=== PATIENT | male | born 2000 | race Two or more races ===

== ENCOUNTER 2020-07-14 22:48 | Emergency (ER) | payer OTHER ==
[~2020-07-14] VITALS: Ht 188 cm; Wt 113.6 kg
[2020-07-15 00:18] LABS: GLUCOSE,POINT OF CARE 109 MG/DL (70-110)
[2020-07-15 01:31] VITALS: BP 133/67
== END 2020-07-15 02:00 | disposition home or self-care (01) ==
LOC: EMS 22:53 → EDBD 22:53 → EMS 07-15 02:00
DX: Z04.3 Encounter for examination and observation following other accident (principal); F17.210 Nicotine dependence, cigarettes, uncomplicated; Z88.0 Allergy status to penicillin; V49.9XXA Car occupant (driver) (passenger) injured in unspecified traffic accident, initial encounter; Y93.89 Activity, other specified; Y92.89 Other specified places as the place of occurrence of the external cause; Y99.8 Other external cause status

== ENCOUNTER 2021-08-26 23:44 | Emergency (ER) | payer OTHER ==
[~2021-08-26] VITALS: Ht 185.4 cm; Wt 90.9 kg
[2021-08-27] MEDS ORDERED: BACITRACIN 0.9 GM PACKET OINTMENT TP ONE (01:00)
[2021-08-27 01:11] VITALS: BP 129/83
== END 2021-08-27 01:28 | disposition home or self-care (01) ==
LOC: EMS 08-27 00:04
DX: S80.212A Abrasion, left knee, initial encounter (principal); S80.211A Abrasion, right knee, initial encounter; S50.311A Abrasion of right elbow, initial encounter; F10.129 Alcohol abuse with intoxication, unspecified; F17.210 Nicotine dependence, cigarettes, uncomplicated; Z88.1 Allergy status to other antibiotic agents; W19.XXXA Unspecified fall, initial encounter; Y93.39 Activity, other involving climbing, rappelling and jumping off; Y92.89 Other specified places as the place of occurrence of the external cause; Y99.8 Other external cause status
CPT/HCPCS: 99283

== ENCOUNTER 2021-10-04 12:56 | Emergency (ER) | payer OTHER ==
[~2021-10-04] VITALS: Ht 185.4 cm; Wt 118.2 kg
[2021-10-04 13:32] VITALS: BP 149/94
[2021-10-04] MEDS ORDERED: BACITRACIN 0.9 GM PACKET OINTMENT TP ONE (14:00)
[2021-10-04] MEDS ORDERED: PERTUSS(ACELL),DIPH,TET VAC/PF 0.5 ML SYRINGE IM. ONE (14:00)
== END 2021-10-04 14:19 | disposition home or self-care (01) ==
LOC: EMS 13:27
DX: S80.871A Other superficial bite, right lower leg, initial encounter (principal); S80.872A Other superficial bite, left lower leg, initial encounter; W54.0XXA Bitten by dog, initial encounter; Y93.89 Activity, other specified; Y92.89 Other specified places as the place of occurrence of the external cause; Y99.8 Other external cause status
CPT/HCPCS: 90471; 90715; 99283